=== PATIENT | female | born 1945 | race Caucasian/White ===

== ENCOUNTER 2018-05-31 17:19 | Observation (INO) | payer OTHER, MEDICARE ==
[~2018-05-31] VITALS: Ht 162.6 cm; Wt 103.3 kg
[2018-05-31 18:26] LABS: HEMATOCRIT 36.2 % (36.0-46.0); HEMOGLOBIN 12.2 G/DL (11.9-15.5); MCH 30.3 PG (29.0-34.0); MCHC 33.7 G/DL (30.0-36.0); MCV 89.8 FL (83-99); PLATELET COUNT 219 K/uL (156-360); RBC DIS.WIDTH-CV 11.5 % (11.8-14.6); RBC DIS.WIDTH-SD 37.8 % (39-53); RED BLOOD COUNT 4.03 M/uL (3.80-5.20)
[2018-05-31 18:34] LABS: ALBUMIN 3.9 g/dL (3.2-4.8); CHLORIDE 101 mEq/L (99-109); SODIUM 135 mEq/L (136-147)
[2018-05-31 18:37] LABS: GLUCOSE 131 mg/dL (70-99); TOTAL PROTEIN 6.9 g/dL (6.4-8.3)
[2018-05-31 18:38] LABS: TOTAL BILIRUBIN 0.3 mg/dL (0.0-1.0)
[2018-05-31 18:40] LABS: ALKALINE PHOSPHATASE 85 IU/L (3-129); CREATININE 1.6 mg/dL (0.6-1.3)
[2018-05-31 18:41] LABS: ERTH.SED.RATE 17 MM/HR (0-30); UREA NITROGEN (BUN) 32 mg/dL (9-23)
[2018-05-31 18:42] LABS: AST (GOT) 31 IU/L (2-34)
[2018-05-31 18:43] LABS: ALT (GPT) 25 IU/L (3-49)
[2018-05-31 18:45] LABS: GFR ESTIMATE (CALCULATED) 33 mL/min/
[2018-05-31 19:19] LABS: C-REACTIVE PROTEIN 9.9 MG/L (0-10)
[2018-05-31 19:54] LABS: APPEARANCE CLEAR ((CLEAR)); BILIRUBIN NEGATIVE; BLOOD NEGATIVE; COLOR STRAW ((YELLOW)); GLUCOSE (STRIP) NEGATIVE; KETONES NEGATIVE; LEUKOCYTES NEGATIVE; NITRITE NEGATIVE; PROTEIN (STRIP) NEGATIVE; SPECIFIC GRAVITY 1.006 (1.000-1.030); UCUL ADDED? NO; UROBILINOGEN 0.2 MG/DL (0.2-1.0)
[2018-05-31] MEDS ORDERED: VOLTAREN 1% GE100 GM TP (21:49)
[2018-05-31] MEDS ORDERED: BENADRYL25 MG PO (21:50)
[2018-05-31] MEDS ORDERED: NEXIUM20 MG PO (21:51)
[2018-05-31] MEDS ORDERED: TRILIPIX135 MG PO (21:53)
[2018-05-31] MEDS ORDERED: FLONASE16 G1 BOTH NARES (21:53)
[2018-05-31] MEDS ORDERED: HYDROCHLOROTHIA50 MG PO (21:54)
[2018-05-31] MEDS ORDERED: LANTUS 3 M100 UNITS1 SC ×2 (21:55)
[2018-05-31] MEDS ORDERED: SYNTHROID150 MCG PO (21:56)
[2018-05-31] MEDS ORDERED: ANTIVERT25 MG PO (21:57)
[2018-05-31] MEDS ORDERED: ROBAXIN750 MG PO (21:58)
[2018-05-31] MEDS ORDERED: NOVOLOG PE100 UNITS/ SC (21:59)
[2018-05-31] MEDS ORDERED: NYSTATIN100000 UN1 PO (22:00)
[2018-05-31] MEDS ORDERED: ROXICODONE5 MG PO (22:02)
[2018-05-31] MEDS ORDERED: MIRALAX255 GM PO (22:03)
[2018-05-31] MEDS ORDERED: K-DUR20 MEQ PO (22:04)
[2018-05-31] MEDS ORDERED: RELISTOR150 MG PO (22:06)
[2018-05-31] MEDS ORDERED: SPIRIVA RESPIMAT4 G1 IH (22:07)
[2018-05-31] MEDS ORDERED: SYMBICORT60 INHALAT IH (22:08)
[2018-05-31] MEDS ORDERED: MICARDIS20 MG PO (22:09)
[2018-05-31] MEDS ORDERED: ELAVIL25 MG PO (22:10)
[2018-05-31] MEDS ORDERED: COLACE100 MG PO (22:12)
[2018-05-31] MEDS ORDERED: AMOX TR-K CLV1 EAC3 PO (22:14)
[2018-05-31] MEDS ORDERED: SENNA-DOCUSATE1 EAC1 PO (22:14)
[2018-06-01 01:33] VITALS: BP 145/70
[2018-06-01 04:13] VITALS: BP 160/72
[2018-06-01 08:11] VITALS: BP 134/60
[2018-06-01 15:33] VITALS: BP 136/68
== END 2018-06-01 16:48 | disposition home or self-care (01) ==
LOC: EME 17:19 → EDOF 23:54 → ENRESERV 06-01 00:32 → 3EAST 06-01 01:02
PROVIDERS: Hospitalist; Physician Assistant
DX: M54.5 Low back pain (principal); R26.89 Other abnormalities of gait and mobility; Z98.1 Arthrodesis status; M47.816 Spondylosis without myelopathy or radiculopathy, lumbar region; M47.812 Spondylosis without myelopathy or radiculopathy, cervical region; M48.00 Spinal stenosis, site unspecified; G89.29 Other chronic pain; M54.9 Dorsalgia, unspecified; R19.7 Diarrhea, unspecified; E11.9 Type 2 diabetes mellitus without complications; I10 Essential (primary) hypertension; E03.9 Hypothyroidism, unspecified; E66.01 Morbid (severe) obesity due to excess calories; Z68.39 Body mass index [BMI] 39.0-39.9, adult; Z79.4 Long term (current) use of insulin; Z88.1 Allergy status to other antibiotic agents; Z88.2 Allergy status to sulfonamides; Z88.8 Allergy status to other drugs, medicaments and biological substances; Z91.048 Other nonmedicinal substance allergy status
CPT/HCPCS: 80053; 81003; 82948; 85027; 85651; 86140; 87493; 87506; 94640; 99281; 99285; G0378; J1650; J1815; J3010; J7030